=== PATIENT | male | born 1980 | race African-American/Black ===

== ENCOUNTER 2017-06-03 15:35 | Emergency (ER) | payer OTHER ==
[~2017-06-03] VITALS: Ht 188 cm; Wt 81.6 kg
[2017-06-03 16:32] LABS: *BILIRUBIN,URIN NEGATIVE (NEGATIVE); *BLOOD, URINE NEGATIVE (NEGATIVE); *CLARITY,URINE CLEAR (CLEAR); *COLOR,URINE YELLOW (YELLOW); *KETONES,URINE NEGATIVE (NEGATIVE); *PROTEIN,URINE NEGATIVE (NEGATIVE); LEUKOCYTE ESTERASE ,URINE NEGATIVE (NEGATIVE); NITRITE, URINE NEGATIVE (NEGATIVE); UGLUCOSE NEGATIVE (NEGATIVE)
[2017-06-03 16:42] LABS: BACTERIA,URINE NONE SEEN /HPF (NONE SEEN); RBC,URINE 0-3 /HPF (0-3); SQUAMOUS EPITHELIAL CELL,UR FEW /HPF (NONE SEEN); WBC,URINE 0-3 /HPF (0-3)
[2017-06-03] MEDS ORDERED: predniSONE 20 MG TABLET ONE (16:57)
[2017-06-03] MEDS: predniSONE 20 MG TABLET PO ONE (16:59)
--- NOTE | 2017-06-03 17:02 | NUR ---
Davis valle in ED - 06/03/17 at 1703 by [email or web address] Patient discharged to home in stable conditon. Written and verbal after care instructions given. Patient verbalizes understanding of instructions.PT WALKS IN STEADY GAIT.
[2017-06-06 08:08] LABS: *GC NAA Negative (Negative); *TRIC.VAG. NAA Negative (Negative)
== END 2017-06-03 17:05 | disposition home or self-care (01) ==
LOC: ER 15:35
DX: J45.909 Unspecified asthma, uncomplicated (principal); R30.0 Dysuria
CPT/HCPCS: 81001; 87086; 87491; 99284; A4663; J7512

== ENCOUNTER 2017-06-05 15:34 | Emergency (ER) | payer OTHER ==
[~2017-06-05] VITALS: Ht 188 cm; Wt 81.6 kg
[2017-06-05] MEDS ORDERED: ASPI-605 PO (15:57)
--- NOTE | 2017-06-05 17:01 | NUR ---
Patient left without being seen by ER physician.
== END 2017-06-05 17:02 | disposition left against medical advice (07) ==
LOC: ER 15:35
DX: N34.2 Other urethritis (principal); Z79.82 Long term (current) use of aspirin
CPT/HCPCS: 99283; A4663

== ENCOUNTER 2017-06-05 20:25 | Emergency (ER) | payer OTHER ==
[~2017-06-05] VITALS: Ht 188 cm; Wt 81.6 kg
[~2017-06-05 20:25] MED LIST: ASPI-605 PO
--- NOTE | 2017-06-05 20:58 | NUR ---
C/O DYSURIA X 3-4 DAYS. URINE SAMPLE SENT TO LAB. PT IN BED AWAITING RESULTS
[2017-06-05] MEDS ORDERED: LIDOCAINE HCL 1% 20 ML VIAL ONE (21:27)
[2017-06-05] MEDS ORDERED: CEFTRIAXONE 1 G VIAL ONE (21:27)
[2017-06-05] MEDS: CEFTRIAXONE 1 G VIAL IM ONE (21:34)
--- NOTE | 2017-06-05 21:45 | NUR ---
Patient discharged to home in stable conditon. Written and verbal after care instructions given. Patient verbalizes understanding of instructions. Patient able to ambulate unassisted with steady gait. Patient left with all belongings.
[2017-06-05 21:46] VITALS: BP 120/75
== END 2017-06-05 21:45 | disposition home or self-care (01) ==
LOC: ER 20:26
DX: N34.2 Other urethritis (principal); Z79.82 Long term (current) use of aspirin
CPT/HCPCS: 96372; 99283; A4663; J0696; J3490